=== PATIENT | female | born 1955 | race Caucasian/White ===

== ENCOUNTER 2019-06-04 16:48 | Inpatient (IN) ==
[2019-06-04] MEDS ORDERED: Naloxone 0.4 MG/ML INJ IVP PRN (18:16)
[2019-06-04 19:41] LABS: VBG HCO3 25 mEq/L (21-27); VBG PCO2 40 mmHg (41-51); VBG PH 7.41 pH Units (7.32-7.42); VBG PO2 45 mmHg (25-50)
[2019-06-04 19:44] LABS: Basophils % 0.3 %; Red Blood Count 4.21 M/mcL (3.82-4.97); Red Cell Distribution Width 14.1 % (11.5-14.5)
[2019-06-04 19:46] LABS: Eosinophils # 0.1 K/mcL (0.0-0.6); Eosinophils % 0.9 %; Hematocrit 40.4 % (35.3-44.9); Hemoglobin 14.1 g/dL (11.5-15.4); Immature Granulocytes % 1.1 % (0-4); Lymphocytes # 0.3 K/mcL (0.6-4.6); Lymphocytes % 3.8 %; Mean Corpuscular HGB Conc 34.9 g/dL (31.6-35.5); Mean Corpuscular Hemoglobin 33.5 pg (28.0-33.3); Mean Platelet Volume 10.2 fL (9.4-12.4); Monocytes # 0.6 K/mcL (0.0-1.3); Monocytes % 9.2 %; Neutrophils # 5.6 K/mcL (1.6-8.9); Segmented Neutrophils % 84.7 %; White Blood Count 6.6 K/mcL (4.3-11.1)
[2019-06-04 19:51] LABS: INR 1.7; Prothrombin Time 19.6 Seconds (9.4-12.1)
[2019-06-04 19:59] LABS: Alanine Aminotransferase 22 Units/L (7-52); Albumin 2.8 g/dL (3.5-5.7); Albumin/Globulin Ratio 1.1 (1.1-2.2); Alkaline Phosphatase 154 Units/L (34-104); Aspartate Amino Transferase 35 Units/L (13-39); BUN/Creatinine Ratio 18 (6-26); Blood Urea Nitrogen 13 mg/dL (8-23); Calcium 8.6 mg/dL (8.6-10.3); Carbon Dioxide 24 mEq/L (23-29); Chloride 99 mEq/L (98-107); Globulin 2.5 g/dL (2.4-3.5); Glucose 224 mg/dL (70-105); Magnesium 1.8 mg/dL (1.6-2.6); Osmolality,Calculated 279 (280-300); Potassium 3.8 mEq/L (3.5-5.1); Sodium 131 mEq/L (136-145); Total Protein 5.3 g/dL (6.4-8.9); eGFR For African Americans > 60 (> 60); eGFR For Non-African Americans > 60 (> 60)
[2019-06-04 20:01] LABS: Albumin 2.8 g/dL (3.5-5.7); Albumin/Globulin Ratio 1.1 (1.1-2.2); Bilirubin,Direct 2.7 mg/dL (0.0-0.2); Bilirubin,Indirect 3.3 mg/dL (0.0-1.2); Globulin 2.5 g/dL (2.4-3.5); Total Protein 5.3 g/dL (6.4-8.9)
[2019-06-04 20:07] LABS: Platelet Count 47 K/mcL (140-400); Platelet Estimate Decreased (Normal)
[2019-06-04 20:08] LABS: Reactive Lymphocytes Present (Not Present); Toxic Granulation Present (Not Present)
[2019-06-04] MEDS ORDERED: D5% in Water 1,000 ML IVC PRN (20:16)
[2019-06-04] MEDS ORDERED: *HR* Dextrose 50 % in Water (Syg) 50 ML SYRINGE IVP PRN (20:16)
[2019-06-04] MEDS ORDERED: Dextrose Gel 15 GM/37.5 ML TUBE PO PRN ×2 (20:16)
[2019-06-04] MEDS ORDERED: Isovue-370 500 ML BOTTLE IVP ONE (20:32)
[2019-06-04] MEDS: *HR* OxyCODONE Immed Rel 5 MG TABLET PO PRN (21:28)
[2019-06-04] MEDS: Lactulose Oral Soln 20 GM/30 ML UDC PO SCH (21:29)
--- NOTE | 2019-06-04 21:29 | Internal Med History&Physical ---
Date of Encounter: 06/04/19 Time of Encounter: 19:40 Internal Medicine - H&P: HPI Chief complaint: AMS; UTI; weakness Admitted From: Hospital to Hospital Transfer Plans for Post Hospital Care: Home History of present illness: Ms. Su is a 63 year old female who presents in transfer from [facility] for concerns of hepatic encephalopathy, UTI, generalized weakness. She presented there with a 24-hour history of altered mental status/confusion, weakness, somnolence, and increased falling. 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 She is not listed on transplant list as of yet. Patient's family requested patient be transferred to [facility] rather than [facility] and, as such, she was accepted here by the hospitalist along with consultation from Dr. Cooper. Upon my assessment of the patient, she is somnolent but easily arousable. She is confused, disoriented, and offers no history. Her daughter and son-in-law ar e present and provide the history. Patient is full code. However, she is currently enrolled in Hospice. Patient's daughter states that she is proceeding with liver transplantation workup. She was diagnosed about 3 years ago with cirrhosis in [place] when she was residing there. She has a TIPS in place and has done well with that shunt since its placement. She has a history of esophageal varices, but she has had no GI bleeding since her TIPS procedure. She is recovering from a broken fibula from a recent fall a few months ago. She does not drink alcohol. According to her daughter, she has not had any fevers, chills, or night sweats. She has had altered mental status and has been taken her lactulose religiously. She also been on her diuretics, but she has had minimal to no oral intake over the last 24 hours. Workup at [facility] included a CT of the head which was negative. Routine labs were performed which revealed patient to have a total bilirubin of 6, urinalysis consistent with UTI, and normal kidney function. Dr. Cooper requested a CT be performed here at [facility] when she arrived here if her kidney function was normal. Past Med Surg Social Fam HX - Past Medical History Source: obtained from family, other (limited [facility] records) Medical history: arthritis, asthma, cirrhosis (MUNOZ), diabetes, GI bleed, hyperlipidemia Psychiatric history: anxiety - Past Surgical History Surgical History: orthopedic, other Additional surgical history: TIPS. T&A - Social History Smoking Status: Never smoker Alcohol use: none Current living situation: Home, With Family Activity Level: Independent ambulation Recent Out of Country Travel Within the Last 8 Weeks: No - Family History Sister Hx Family GI Disorders: Yes (MUNOZ cirrhosis) - Additional Family History Additional family history: strong FH MUNOZ cirrhosis; one sister with ETOH related cirrhosis Internal Medicine - H&P: Meds Bumetanide [Bumex] 1 mg PO DAILY 06/04/19 [History] Ferrous Sulfate [Iron] 325 mg PO TID 06/04/19 [History] GlipiZIDE [Glucotrol Xl] 2.5 mg PO DAILY 06/04/19 [History] Lactulose 20 gm PO TID 06/04/19 [History] Omeprazole [PriLOSEC] 20 mg PO DAILY 06/04/19 [History] Ondansetron ODT [Zofran ODT] 4 mg PO DAILY PRN 06/04/19 [History] Oxybutynin [Ditropan] 2.5 mg PO BID 06/04/19 [History] Oxycodone HCl [Roxybond] 5 mg PO Q4H PRN 06/04/19 [History] Paroxetine [Paxil] 20 mg PO DAILY 06/04/19 [History] Pravastatin Sodium [Pravachol] 40 mg PO DAILY 06/04/19 [History] Propranolol [Inderal] 20 mg PO BID 06/04/19 [History] Rifaximin [Xifaxan] 550 mg PO DAILY 06/04/19 [History] Tramadol HCl [Ultram] 50 mg PO QID PRN 06/04/19 [History] Allergy/AdvReac Type Severity Reaction Status Date / Time metformin Allergy Rash Verified 09/06/18 13:51 Review of systems: per daughter; unable to obtain from patient - Constitutional Constitutional: anorexia, fatigue, falls, lethargy, malaise, no chills, no fever(s) - EENT Eyes: no change in vision Nose, mouth and throat: no nasal congestion - Cardiovascular Cardiovascular ROS IM: no chest pain, no dyspnea, no dyspnea on exertion - Respiratory Respiratory: no cough, no hemoptysis, no chest congestion - Gastrointestinal Gastrointestinal: abdominal pain (lower abdomen/suprapubic), no coffee ground emesis, no diarrhea, no hematemesis, no hematochezia, no melena, no vomiting - Genitourinary Genitourinary: difficulty voiding, dysuria, no flank pain, no hematuria - Musculoskeletal Musculoskeletal ROS IM: arthralgias - Integumentary Integumentary IM: rash (psoriasis), jaundice - Neurological Neurological ROS: behavioral changes, confusion, frequent falls, no convulsions, no focal weakness - Psychiatric Psychiatric: confusion, no anxiety, no depression - Endocrine Endocrine IM: no polydipsia, no polyphagia, no polyuria - Allergic/Immunologic Allergic/Immunologic: no GI upset with certain foods - Constitutional Vitals: Temp Pulse Resp BP Pulse Ox 99.4 F 67 18 161/76 96 06/04/19 19:45 06/04/19 19:45 06/04/19 19:45 06/04/19 19:45 06/04/19 19:45 General appearance: Present: A&O X 0, mild distress, morbidly obese. Absent: answers questions appropriately Exam: mildly jaunidced; confused, disoriented, appears intravascularly dry - Head Head exam: Present: atraumatic, normal inspection - Eye Eye exam: Present: EOMI, PERRL, scleral icterus Pupils: Present: normal accommodation - ENT ENT exam: Present: mucous membranes dry, normal oropharynx - Neck Neck exam general surgery: Present: full ROM, supple, trachea midline. Absent: lymphadenopathy, tenderness, nuchal rigidity, thyromegaly - Respiratory Respiratory exam: Present: CTAB. Absent: chest wall tenderness, rales, rhonchi, wheezes - Cardiovascular Cardiovascular exam: Present: RRR, +S1, +S2. Absent: diastolic murmur, systolic murmur - GI/Abdominal GI/Abdominal exam: Present: normal bowel sounds, tenderness (mild suprapubic pain), no peritoneal signs. Absent: guarding, hepatomegaly, mass, rebound, splenomegaly - Extremities Exam Extremities exam: Present: warm, radial pulses palpable and symmetrical. Absent: calf tenderness, pedal edema, tenderness - Back Exam Back exam: Absent: CVA tenderness (L), CVA tenderness (R) - Neurological Exam Neurological exam: Present: altered, no focal deficits Additional comments: somnolent; arousable; confused; moves all 4 extremities - Skin Skin exam: Present: dry, warm. Absent: rash Additional comments: +skin tenting Internal Med - H&P Results - Labs CBC & Chem 7: 06/04/19 19:12 06/04/19 19:12 Labs: Short CBC 06/04/19 Range/Units 19:12 WBC 6.6 (4.3-11.1) K/mcL Hgb 14.1 (11.5-15.4) g/dL Hct 40.4 (35.3-44.9) % Plt Count 47 L (140-400) K/mcL Neutrophils # 5.6 (1.6-8.9) K/mcL BMP 06/04/19 19:12 Sodium 131 L Potassium 3.8 Chloride 99 Carbon Dioxide 24 BUN 13 Creatinine 0.74 Glucose 224 H Calcium 8.6 Liver Function 06/04/19 06/04/19 Range/Units 19:12 19:12 Total Bilirubin 6.0 H 6.0 H (0.3-1.0) mg/dL Direct Bilirubin 2.7 H (0.0-0.2) mg/dL AST 35 36 (13-39) Units/L ALT 22 22 (7-52) Units/L Alkaline Phosphatase 154 H 156 H (34-104) Units/L Albumin 2.8 L 2.8 L (3.5-5.7) g/dL I reviewed labs from [facility] and include the following: Sodium 133 Potassium 4.3 Chloride 99 Carbon Dioxide 26 BUN 14 Glucose 249 Creatinine 0.82 AST 53 ALT 32 alkaline phosphatase 181 Bilirubin 6.1 Urinalysis consistent with UTI findings CT headnegative - ABG Interpretation ABG results: 06/04/19 19:38 VBG pH 7.41 VBG pCO2 40 L VBG pO2 45 VBG HCO3 25 - Assessment and Plan (1) UTI (urinary tract infection) Current Visit: Yes Status: Acute Assessment and plan: 1. Will order repeat U/A and culture here. 2. Continue Rocephin daily and follow cultures. 3. Monitor I/O and renal function. Qualifiers: Urinary tract infection type: acute cystitis Hematuria presence: with hematuria Qualified Code(s): N30.01 - Acute cystitis with hematuria (2) Hepatic encephalopathy Current Visit: Yes Status: Acute Assessment and plan: 1. Continue Lactulose and Rifaximin. 2. Treat UTI as this is likely culprit. 3. Monitor clinically. 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 Consult Dr. Cooper. 2. CT abdomen and pelvis per Dr. Cooper's request. 3. Recommended to family patient should continue to follow outpatient with [facility] if she remains to be a transplant candidate. (4) Dehydration, mild Current Visit: Yes Status: Acute Assessment and plan: 1. Hold diuretics for now. 2. IVF hydration. 3. Monitor I/O and clinical assessment of hydration status. (5) DVT prophylaxis Current Visit: Yes Status: Acute Assessment and plan: 1. EPCD's.
[2019-06-04] MEDS: 0.9 % Sodium Chloride 1,000 ML IVC SCH (21:42)
[2019-06-05 00:18] LABS: Bilirubin,Urine Small (Negative); Blood,Urine Trace (Negative); Clarity,Urine Clear (Clear); Color,Urine Dark Yellow (Yellow); Glucose,Urine (UA) 100 mg/dL (Normal); Ketones,Urine Negative (Negative); Leukocyte Esterase,Urine Moderate (Negative); Nitrite,Urine Negative (Negative); PH,Urine 6.5 pH Units (5.0-8.0); Protein,Urine Trace mg/dL (Neg-Trace); Specific Gravity,Urine > 1.030 (1.010-1.025)
[2019-06-05 00:20] LABS: Bacteria,Urine None Seen per hpf (None-Few); Hyaline Casts,Urine None Seen per lpf (None-Few); Squamous Epithelial Cell,Urine Many per lpf (None-Few); WBC,Urine TNTC per hpf (0-3)
[2019-06-05 01:38] LABS: Mean Corpuscular HGB Conc 34.8 g/dL (31.6-35.5)
[2019-06-05 01:40] LABS: Hematocrit 38.2 % (35.3-44.9); Hemoglobin 13.3 g/dL (11.5-15.4); Immature Platelets 3.3 % (1.1-6.1); Mean Corpuscular Hemoglobin 33.8 pg (28.0-33.3); Mean Corpuscular Volume 97.2 fL (83.0-100.0); Mean Platelet Volume 10.4 fL (9.4-12.4); Red Blood Count 3.93 M/mcL (3.82-4.97); White Blood Count 7.1 K/mcL (4.3-11.1)
[2019-06-05 02:07] LABS: Platelet Count 48 K/mcL (140-400)
[2019-06-05 02:08] LABS: Alanine Aminotransferase 23 Units/L (7-52); Albumin 2.6 g/dL (3.5-5.7); Albumin/Globulin Ratio 1.2 (1.1-2.2); Alkaline Phosphatase 138 Units/L (34-104); Aspartate Amino Transferase 57 Units/L (13-39); BUN/Creatinine Ratio 21 (6-26); Bilirubin,Direct 1.4 mg/dL (0.0-0.2); Bilirubin,Indirect 3.9 mg/dL (0.0-1.2); Bilirubin,Total 5.3 mg/dL (0.3-1.0); Blood Urea Nitrogen 13 mg/dL (8-23); Calcium 8.1 mg/dL (8.6-10.3); Carbon Dioxide 20 mEq/L (23-29); Chloride 101 mEq/L (98-107); Globulin 2.2 g/dL (2.4-3.5); Glucose 218 mg/dL (70-105); Magnesium 1.8 mg/dL (1.6-2.6); Osmolality,Calculated 277 (280-300); Potassium 4.2 mEq/L (3.5-5.1); Sodium 130 mEq/L (136-145); Total Protein 4.8 g/dL (6.4-8.9); eGFR For African Americans > 60 (> 60); eGFR For Non-African Americans > 60 (> 60)
[2019-06-05 02:09] LABS: Thyroid Stimulating Hormone 0.561 mcIU/mL (0.340-5.600)
[2019-06-05 03:04] LABS: Lymphocytes # 0.1 K/mcL (0.6-4.6); Monocytes # 0.6 K/mcL (0.0-1.3); Neutrophils # 6.3 K/mcL (1.6-8.9); Platelet Estimate Decreased (Normal); Toxic Granulation Present (Not Present)
[2019-06-05] MEDS: *HR* OxyCODONE Immed Rel 5 MG TABLET PO PRN (03:47)
[2019-06-05] MEDS ORDERED: cefTRIAXone 1,000 MG in Water for inj. (sterile) 10 ML IVP SCH (09:00)
[2019-06-05] MEDS: 0.9 % Sodium Chloride 1,000 ML IVC SCH (09:40)
[2019-06-05] MEDS: cefTRIAXone 2,000 MG in 0.9 % Sodium Chloride Mini Bag 100 ML IVPB SCH (09:50)
[2019-06-05] MEDS: Lactulose Oral Soln 20 GM/30 ML UDC PO SCH ×3 (09:54→20:00)
[2019-06-05] MEDS: Insulin LISPRO 300 UNITS/3 ML VIAL SQ SCH ×4 (10:01→20:32)
--- NOTE | 2019-06-05 10:40 | Gastroenterology Consult Note ---
<Vel Garcia Sofía - Last Filed: 06/05/19 10:37> Date of Encounter: 06/05/19 Time of Encounter: 09:10 - Assessment and plan (1) Liver cirrhosis secondary to MUNOZ Status: Chronic Assessment and plan: MELD-Na 24 and Child-Howell class C on admission. Patient s/p TIPs procedure. Check AFP. Titrate Lactulose for 2-4 BMs daily. Continue Rifaximin 550 mg BID. Lifestyle Changes: 1. Total abstinence from alcohol including social drinking. 2. No smoking. 3. Gradual loss of weight. 4. Drink at least 3 cups of coffee due to its antioxidant effects in the liver, it reduces risk of HCC and advance fibrosis. 5. If needed, use less than 2 g/day of Tylenol (in divided doses). 6. Vaccination for Hep A, B, Pneumococcus if not already received and yearly influenza vaccination by PCP. 7. Avoid NSAIDS as can cause kidney damage. 8. Avoid benzodiazepines and other sedatives such as anti-histamines, narcotics etc. as can cause encephalopathy or confusion. 9. Take a late carbohydrate meal supplement as it reduces glucose production from protein breakdown and thus improves nutrition. 10. In cirrhosis, statins are safe to use and also improve portal hypertension and decrease risk of HCC. 11. Screening: Hepatocellular cancer screening: US of liver and AFP every 6 months (2) Hepatic encephalopathy Status: Acute Assessment and plan: Secondary to Cirrhosis. Likely worsened by UTI. Titrate Lactulose for 2-4 BMs daily. Continue Rifaximin 550mg BID. Continue to treat UTI. - Time Spent With Patient Total time spent is greater than 50% in coordination of care (as documented) at patient's floor/unit and/or counseling patient: GI History of Present Illness - Data of Consult Patient: new to practice Consult date: 06/05/19 Requesting Physician: Emani Spangler - Consult Narrative Reason for consult: MUNOZ cirrhosis, encephalopathy History of present illness: Ms. Su is a 63 year old female with PMHx of arthritis, asthma, MUNOZ cirrhosis, DM, GI bleed, HLD who was transferred from [facility] for concerns of hepatic encephalopathy, UTI, generalized weakness. 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 She is somnolent but easily arousable. No fammily at bedside. History obtained from cheart review. She was diagnosed with cirrhosis 3 years ago in [place]. She is s/p TIPS procedures. No alcohol use. CT A/P showed pyelonephritis, cirrhosis with TIPS shunt in place, mild colonic stool burden. Procedures: No record of scopes. NSAIDs: None Anticoagulation: None Past Med Surg Social Fam HX - Past Medical History Medical history: arthritis, asthma, cirrhosis (MUNOZ), diabetes, GI bleed, hyperlipidemia Psychiatric history: anxiety - Past Surgical History Surgical History: orthopedic, other Additional surgical history: TIPS. T&A - Social History Smoking Status: Never smoker Alcohol use: none - Family History Sister Hx Family GI Disorders: Yes (MUNOZ cirrhosis) ROS unobtainable: due to mental status - Constitutional Vitals: Temp Pulse Resp BP Pulse Ox 98.5 F 54 18 159/75 95 06/05/19 07:07 06/05/19 07:07 06/05/19 07:07 06/05/19 07:07 06/05/19 07:07 General appearance: Present: cooperative, no acute distress Exam: oriented to name and year. Unable to keep eyes open during exam - Head Head exam: Present: atraumatic, normocephalic - Eye Eye exam: Present: scleral icterus - ENT ENT exam: Present: mucous membranes dry - Neck Neck exam general surgery: Present: normal inspection, trachea midline - Respiratory Respiratory exam: Present: CTAB. Absent: rales, rhonchi - Cardiovascular Cardiovascular exam: Present: RRR, +S1, +S2 - GI/Abdominal GI/Abdominal exam: Present: soft, no peritoneal signs. Absent: distended, firm, guarding, tenderness - Rectal Rectal exam: Present: deferred - Extremities Exam Extremities exam: Present: warm - Neurological Exam Neurological exam: Present: altered - Psychiatric Psychiatric exam: Present: normal affect, normal mood - Skin Skin exam: Present: dry, intact, warm Additional comments: mild jaundice Results - Labs CBC & Chem 7: 06/05/19 01:18 06/05/19 01:18 Labs: Last Result 06/05/19 01:18 Calcium 8.1 L Entire Visit 06/05/19 06/05/19 01:18 01:18 Hgb 13.3 Hct 38.2 Total Bilirubin 5.3 H AST 57 H ALT 23 - ABG ABG results: PT/INR, D-dimer PT 19.6 Seconds (9.4-12.1) H 06/04/19 19:12 - Impressions Impressions Abdomen/Pelvis CT 06/04/19 20:32 IMPRESSION: 1. Heterogeneous attenuation of the right renal parenchyma with infiltration of the perinephric fat. The findings are consistent with pyelonephritis. 2. Cirrhosis with TIPS shunt in place. Previous embolization of retroperitoneal varices. Small quantity of ascites. Third-spacing of fluid with mild anasarca and small left pleural effusion. 3. Mild diffuse colonic stool burden. 4. 3.1 cm fusiform infrarenal abdominal aortic aneurysm. Imaging follow-up recommendations below. Atherosclerotic calcification in the aorta and coronary circulation. RECOMMENDATIONS: For management of fusiform AAA: 3.0-3.4 cm AAA, recommend follow-up every 3 years. * For management of saccular abdominal aortic aneurysms of any size, recommend vascular consultation. Note: For AAA enlargement of >0.5 cm in 6 months or >1 cm in 1 year, recommend vascular consultation. References: J Am Bebeto Radiol 2013; 10(10):789-794; J Vasc Surg. 2018; 67:2-77 D/ / 06/04/2019 22:36:14 Patrick Phoenix MD / ching Interpreting Provider: Patrick Phoenix MD Consult Discharge Plan - Plan Referrals: NONE,PCP [Primary Care Provider] - Prescriptions: Furosemide [Lasix] 20 mg PO DAILY #30 tablet Cefdinir [Omnicef] 300 mg PO BID 5 Days #10 capsule Tramadol HCl [Ultram] 50 mg PO BID PRN 1 Days #2 tab PRN Reason: Pain Rifaximin [Xifaxan] 550 mg PO BID #60 tablet <Yariel Devi - Last Filed: 07/03/19 09:16> Date of Encounter: 06/05/19 - Time Spent With Patient Total time spent is greater than 50% in coordination of care (as documented) at patient's floor/unit and/or counseling patient: GI History of Present Illness - Data of Consult Requesting Physician: Belkys Pickering MD - Consult Narrative History of present illness: Ms. Su is a 63 year old female - Constitutional Vitals: Temp Pulse Resp BP Pulse Ox 97.8 F 54 17 155/54 96 06/09/19 15:18 06/09/19 15:18 06/09/19 15:18 06/09/19 15:18 06/09/19 15:18 Results - Labs CBC & Chem 7: 06/06/19 03:45 06/09/19 01:28 - ABG ABG results: PT/INR, D-dimer PT 19.6 Seconds (9.4-12.1) H 06/04/19 19:12 - Attending Attestation 63 year old female admitted with hepatic encephalopathy secondary to UTI and dehydration. Child C cirrhosis. Manage encephalopathy. I have personally performed a face to face evaluation on this patient. I have reviewed and agree with the care plan. History and Exam by me shows:
[2019-06-05 10:58] LABS: Estimated Average Glucose 108 mg/dl
--- NOTE | 2019-06-05 16:32 | Internal Med Progress Note ---
Hospitalist Progress Note - Encounter Date of Encounter: 06/05/19 Time of Encounter: 08:00 - Subjective Interval History: Patient was seen and examined at bedside. Alert and oriented to self, person knows president and place not time. Is unable to provide much information about how she came to the hospital. Complains of back pain. Falls asleep during questioning. I discussed her case with daughter at bedside. As per daughter about 3 months ago she fell and broke her fibula and was prescribed an orthopedic boot however she is noncompliant with the boot. Last follow-up with orthopedics was last week and as per daughter the fracture has not healed yet however her mother continues to refuse to wear the boot. As per daughter she has history of noncompliance to medications however she was started on a program to monitor her taking her medications and she reports that she has been compliant with all her medications except lasix. as per daughter she has never had SBP nor has she ever had ascites and there has been no need for paracenthesis. patient denies fever, chills, n/v. headache, pain, loss of function of her extremities. - Exam Vitals: Temp Pulse Resp BP Pulse Ox 98.4 F 55 90 168/73 90 06/05/19 15:44 06/05/19 15:44 06/05/19 12:07 06/05/19 15:44 06/05/19 15:44 Exam: General: Patient is drowsy, easily arousable, morbidly obese Head: atraumatic, normocephalic, Eye: normal appearance, PERRL, icteric ENT: mucous membranes moist, normal external ear exam Neck: normal inspection, trachea midline, no neck stiffness Chest: normal inspection, symmetric chest rise Respiratory: Distant breath sounds secondary to body habitus, Bilateral breath sounds are clear without wheezing, crackles, or rhonchi. Cardiovascular: Regular rate and rhythm. s1 and s2 No clicks, rubs, gallops, or murmors. Abdomen: Bowel sounds present normoactive x-4 quadrants. Obese, nontender to palpation in all quadrants, no rebound tenderness, could not appreciate any ascites. Has CVA tenderness bilaterally. musculoskeletal: Spontaneously moving all extremities. no edema, no calf tenderness Skin: warm, dry, intact. Neuro: Alert and oriented xSelf, person and place but not time. moving all extremities not cooperative with exam - Assessment and Plan (1) Hepatic encephalopathy Current Visit: Yes Status: Acute Assessment and Plan: Likely secondary to TIPS procedure and possible medication noncompliance which has exacerbated by pyelonephritis. Doubt SBP as she has no rebound tenderness, no mention of ascites on CT abdomen and pelvis. Continue Lactulose and Rifaximin. Neuro checks every 4 hours Aspiration, fall and seizure precautions Sure 3-4 bowel movements daily GI was consulted As per chart review CT head was negative at the other facility. susi repeat CT head as mental status is not improving (2) Pyelonephritis Current Visit: Yes Status: Acute Assessment and Plan: UA positive CT abdomen and pelvis- Heterogeneous attenuation of the right renal parenchyma with infiltration of the perinephric fat. The findings are consistent with pyelonephritis. Continue ceftriaxone Will follow urine cultures and bcx (3) Hyponatremia Current Visit: Yes Status: Acute Assessment and Plan: Appears to be hypervolemic hyponatremia follow sodium levels at 4pm hold SSRI TSH within normal limits cortisol level in the morning resume diuretics will consider adding aldactone Continue to monitor sodium levels closely. 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 3.0-3.4 cm AAA, recommend follow-up every 3 years. * For management of saccular abdominal aortic aneurysms of any size, recommend vascular consultation. Note: For AAA enlargement of >0.5 cm in 6 months or >1 cm in 1 year, recommend vascular consultation. (6) Thrombocytopenia Current Visit: Yes Status: Acute Assessment and Plan: secondary to cirrhosis monitor her for bleeding Avoid NSAIDS, Anticoagulations and ASA (7) DVT prophylaxis Current Visit: Yes Status: Acute Assessment and Plan: EPCD's. DVT Prophylaxis: prognosis is guarded - Time Spent with Patient Total time spent is greater than 50% in coordination of care (as documented) at patient's floor/unit and/or counseling patient: Greater than 35 minutes Plan of Care Discussed with: family Internal Medicine: Result - Labs CBC & Chem 7: 06/05/19 01:18 06/05/19 01:18 Labs: Short CBC 06/04/19 06/05/19 Range/Units 19:12 01:18 WBC 6.6 7.1 (4.3-11.1) K/mcL Hgb 14.1 13.3 (11.5-15.4) g/dL Hct 40.4 38.2 (35.3-44.9) % Plt Count 47 L 48 L (140-400) K/mcL Neutrophils # 5.6 6.3 (1.6-8.9) K/mcL BMP 06/04/19 06/05/19 19:12 01:18 Sodium 131 L 130 L Potassium 3.8 4.2 Chloride 99 101 Carbon Dioxide 24 20 L BUN 13 13 Creatinine 0.74 0.61 Glucose 224 H 218 H Calcium 8.6 8.1 L Liver Function 06/04/19 06/04/19 06/05/19 Range/Units 19:12 19:12 01:18 Total Bilirubin 6.0 H 6.0 H 5.3 H (0.3-1.0) mg/dL Direct Bilirubin 2.7 H 1.4 H (0.0-0.2) mg/dL AST 35 36 57 H (13-39) Units/L ALT 22 22 23 (7-52) Units/L Alkaline Phosphatase 154 H 156 H 138 H (34-104) Units/L Albumin 2.8 L 2.8 L 2.6 L (3.5-5.7) g/dL Urine 06/04/19 Range/Units 23:15 Urine Color Dark Yellow (Yellow) Urine Clarity Clear (Clear) Urine pH 6.5 (5.0-8.0) pH Units Ur Specific [place] > 1.030 H (1.010-1.025) Urine Protein Trace (Neg-Trace) mg/dL Urine Glucose (UA) 100 H (Normal) mg/dL - ABG Interpretation ABG results: PT/INR, D-dimer PT 19.6 Seconds (9.4-12.1) H 06/04/19 19:12 - Impressions Impressions Abdomen/Pelvis CT 06/04/19 20:32 IMPRESSION: 1. Heterogeneous attenuation of the right renal parenchyma with infiltration of the perinephric fat. The findings are consistent with pyelonephritis. 2. Cirrhosis with TIPS shunt in place. Previous embolization of retroperitoneal varices. Small quantity of ascites. Third-spacing of fluid with mild anasarca and small left pleural effusion. 3. Mild diffuse colonic stool burden. 4. 3.1 cm fusiform infrarenal abdominal aortic aneurysm. Imaging follow-up recommendations below. Atherosclerotic calcification in the aorta and coronary circulation. RECOMMENDATIONS: For management of fusiform AAA: 3.0-3.4 cm AAA, recommend follow-up every 3 years. * For management of saccular abdominal aortic aneurysms of any size, recommend vascular consultation. Note: For AAA enlargement of >0.5 cm in 6 months or >1 cm in 1 year, recommend vascular consultation. References: J Am Bebeto Radiol 2013; 10(10):789-794; J Vasc Surg. 2018; 67:2-77 D/ / 06/04/2019 22:36:14 Patrick Phoenix MD / ching Interpreting Provider: Patrick Phoenix MD Consult Discharge Plan - Plan Referrals: NONE,PCP [Primary Care Provider] - (5) AAA (abdominal aortic aneurysm) Qualifiers: Presence of rupture: without rupture Qualified Code(s): I71.4 - Abdominal aortic aneurysm, without rupture
[2019-06-05] MEDS: traMADol 50 MG TABLET PO PRN (17:04)
[2019-06-05] MEDS: Ondansetron 4 MG/2 ML VIAL IVP PRN (17:07)
[2019-06-06] MEDS ORDERED: traMADol 50 MG TABLET PO ONE (00:50)
[2019-06-06] MEDS: Ondansetron 4 MG/2 ML VIAL IVP PRN (01:12)
[2019-06-06 05:35] LABS: Hematocrit 43.3 % (35.3-44.9); Hemoglobin 14.8 g/dL (11.5-15.4); Immature Platelets 4.4 % (1.1-6.1); Mean Corpuscular HGB Conc 34.2 g/dL (31.6-35.5); Mean Corpuscular Hemoglobin 32.5 pg (28.0-33.3); Mean Corpuscular Volume 95.2 fL (83.0-100.0); Mean Platelet Volume 10.5 fL (9.4-12.4); Red Blood Count 4.55 M/mcL (3.82-4.97); Red Cell Distribution Width 14.2 % (11.5-14.5); White Blood Count 9.1 K/mcL (4.3-11.1)
[2019-06-06 05:41] LABS: BUN/Creatinine Ratio 27 (6-26); Blood Urea Nitrogen 13 mg/dL (8-23); Carbon Dioxide 21 mEq/L (23-29); Chloride 103 mEq/L (98-107); Glucose 159 mg/dL (70-105); Osmolality,Calculated 279 (280-300); Potassium 3.4 mEq/L (3.5-5.1); Sodium 133 mEq/L (136-145); eGFR For African Americans > 60 (> 60); eGFR For Non-African Americans > 60 (> 60)
[2019-06-06] MEDS: Potassium Chloride Elixir 20 MEQ/15 ML UDC PO SCH ×2 (08:16→20:56)
[2019-06-06] MEDS: Bumetanide 1 MG TABLET PO SCH (08:16)
[2019-06-06] MEDS: cefTRIAXone 2,000 MG in 0.9 % Sodium Chloride Mini Bag 100 ML IVPB SCH (08:17)
[2019-06-06] MEDS: Lactulose Oral Soln 20 GM/30 ML UDC PO SCH ×2 (08:26→20:57)
[2019-06-06] MEDS: Insulin LISPRO 300 UNITS/3 ML VIAL SQ SCH ×4 (08:26→21:01)
--- NOTE | 2019-06-06 10:19 | Internal Med Progress Note ---
Hospitalist Progress Note - Encounter Date of Encounter: 06/06/19 Time of Encounter: 08:00 - Subjective Interval History: Patient was seen and examined at bedside. Much more alert and awake. Denies any fever, chills, nausea, vomiting does have diarrhea ( lactulose). discussed that Pt/ot was consulted to work with her. awaiting boot by daughter for the fibula fx. Does complain of on and off back pain. She is tolerating by mouth diet. No overnight events. - Exam Vitals: Temp Pulse Resp BP Pulse Ox 97.7 F 55 16 169/76 92 06/06/19 07:37 06/06/19 07:37 06/06/19 07:37 06/06/19 07:37 06/06/19 07:37 Exam: General: Patient is drowsy, easily arousable, morbidly obese Head: atraumatic, normocephalic, Eye: normal appearance, PERRL, icteric ENT: mucous membranes moist, normal external ear exam Neck: normal inspection, trachea midline, no neck stiffness Chest: normal inspection, symmetric chest rise Respiratory: Distant breath sounds secondary to body habitus, Bilateral breath sounds are clear without wheezing, crackles, or rhonchi. Cardiovascular: Regular rate and rhythm. s1 and s2 No clicks, rubs, gallops, or murmors. Abdomen: Bowel sounds present normoactive x-4 quadrants. Obese, nontender to palpation in all quadrants, no rebound tenderness, could not appreciate any ascites. Has CVA tenderness bilaterally- improved musculoskeletal: Spontaneously moving all extremities. no edema, no calf tenderness Skin: warm, dry, intact. Neuro: Alert and oriented xSelf, 3, no focal deficit - Assessment and Plan (1) Hepatic encephalopathy Current Visit: Yes Status: Acute Assessment and Plan: Likely secondary to TIPS procedure and possible medication noncompliance which has exacerbated by pyelonephritis. - Improved, currently alert and oriented 3 Doubt SBP as she has no rebound tenderness, no mention of ascites on CT abdomen and pelvis. Continue Lactulose and Rifaximin. Neuro checks every 4 hours Aspiration, fall and seizure precautions Sure 3-4 bowel movements daily GI recommendations appreciated As per chart review CT head was negative at the other facility. Repeat CT head without any acute disease (2) Pyelonephritis Current Visit: Yes Status: Acute Assessment and Plan: UA positive CT abdomen and pelvis- Heterogeneous attenuation of the right renal parenchyma with infiltration of the perinephric fat. The findings are consistent with pyelonephritis. Continue ceftriaxone urine cultures negative BCX NGTD due to CT findings will treat for 5-7 days (3) Hyponatremia Current Visit: Yes Status: Acute Assessment and Plan: Appears to be hypervolemic hyponatremia follow sodium levels improved to 133 hold SSRI TSH within normal limits cortisol level WNL bumex resumed - will add aldactone ( discussed with GI) Continue to monitor sodium levels closely. 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 3.0-3.4 cm AAA, recommend follow-up every 3 years. * For management of saccular abdominal aortic aneurysms of any size, recommend vascular consultation. Note: For AAA enlargement of >0.5 cm in 6 months or >1 cm in 1 year, recommend vascular consultation. (6) Thrombocytopenia Current Visit: Yes Status: Acute Assessment and Plan: secondary to cirrhosis monitor her for bleeding Avoid NSAIDS, Anticoagulations and ASA (7) Declining functional status Current Visit: Yes Status: Acute Assessment and Plan: Pt/Ot ordered discussed with daughter has had multiple falls had fibula fx - daughter will bring surgical boot Last follow-up with orthopedics was last week and as per daughter the fracture has not healed yet however her mother continues to refuse to wear the boot. (8) DVT prophylaxis Current Visit: Yes Status: Acute Assessment and Plan: EPCD's. - Time Spent with Patient Total time spent is greater than 50% in coordination of care (as documented) at patient's floor/unit and/or counseling patient: 25 - 35 minutes Plan of Care Discussed with: patient Internal Medicine: Result - Labs CBC & Chem 7: 06/06/19 03:45 06/06/19 03:45 Labs: Short CBC 06/06/19 Range/Units 03:45 WBC 9.1 (4.3-11.1) K/mcL Hgb 14.8 D (11.5-15.4) g/dL Hct 43.3 (35.3-44.9) % Plt Count 43 L (140-400) K/mcL BMP 06/05/19 06/06/19 17:26 03:45 Sodium 132 L 133 L Potassium 3.4 L Chloride 103 Carbon Dioxide 21 L BUN 13 Creatinine 0.49 L Glucose 159 H Calcium 8.0 L - ABG Interpretation ABG results: PT/INR, D-dimer PT 19.6 Seconds (9.4-12.1) H 06/04/19 19:12 - Impressions Impressions Head CT 06/05/19 16:20 IMPRESSION: No acute intracranial abnormality. D/ / Radha Monterroso MD / Radha Monterroso MD Interpreting Provider: Radha Monterroso MD Chest X-Ray 06/06/19 04:00 IMPRESSION: No acute abnormality identified. Atelectasis versus scar within the left upper lobe. D/ / Matthew Raya MD / Matthew Raya MD Interpreting Provider: Matthew Raya MD Consult Discharge Plan - Plan Referrals: NONE,PCP [Primary Care Provider] - (5) AAA (abdominal aortic aneurysm) Qualifiers: Presence of rupture: without rupture Qualified Code(s): I71.4 - Abdominal aortic aneurysm, without rupture
[2019-06-06] MEDS: Spironolactone 25 MG TABLET PO SCH (12:29)
[2019-06-06] MEDS: traMADol 50 MG TABLET PO PRN (20:56)
[2019-06-07] MEDS ORDERED: *HR* OxyCODONE Immed Rel 5 MG TABLET PO ONE (05:37)
[2019-06-07 06:21] LABS: BUN/Creatinine Ratio 20 (6-26); Blood Urea Nitrogen 11 mg/dL (8-23); Calcium 7.6 mg/dL (8.6-10.3); Carbon Dioxide 24 mEq/L (23-29); Chloride 99 mEq/L (98-107); Glucose 208 mg/dL (70-105); Osmolality,Calculated 275 (280-300); Potassium 3.6 mEq/L (3.5-5.1); Sodium 130 mEq/L (136-145); eGFR For African Americans > 60 (> 60); eGFR For Non-African Americans > 60 (> 60)
[2019-06-07] MEDS: Lactulose Oral Soln 20 GM/30 ML UDC PO SCH ×2 (09:08→22:16)
[2019-06-07] MEDS: Bumetanide 1 MG TABLET PO SCH (09:09)
[2019-06-07] MEDS: Spironolactone 25 MG TABLET PO SCH (09:09)
[2019-06-07] MEDS: cefTRIAXone 2,000 MG in 0.9 % Sodium Chloride Mini Bag 100 ML IVPB SCH (09:10)
[2019-06-07] MEDS: Insulin LISPRO 300 UNITS/3 ML VIAL SQ SCH ×4 (09:12→22:14)
--- NOTE | 2019-06-07 10:06 | Internal Med Progress Note ---
Hospitalist Progress Note - Encounter Date of Encounter: 06/07/19 Time of Encounter: 08:00 - Subjective Interval History: Patient was seen and examined at bedside. Denies any nausea, vomiting or chest pain or palpitations. Pain is controlled. No overnight events. Tolerating by mouth diet. Discussed the importance of her being compliant with her lactulose. Currently awaiting to work with physical therapy. Case management on board for likely SNF placement. - Exam Vitals: Temp Pulse Resp BP Pulse Ox 98.1 F 61 14 134/67 91 06/07/19 08:00 06/07/19 08:00 06/07/19 08:00 06/07/19 08:00 06/07/19 08:00 Exam: General: Patient is drowsy, easily arousable, morbidly obese Head: atraumatic, normocephalic, Eye: normal appearance, PERRL, icteric ENT: mucous membranes moist, normal external ear exam Neck: normal inspection, trachea midline, no neck stiffness Chest: normal inspection, symmetric chest rise Respiratory: Distant breath sounds secondary to body habitus, Bilateral breath sounds are clear without wheezing, crackles, or rhonchi. Cardiovascular: Regular rate and rhythm. s1 and s2 No clicks, rubs, gallops, or murmors. Abdomen: Bowel sounds present normoactive x-4 quadrants. Obese, nontender to palpation in all quadrants, no rebound tenderness, could not appreciate any ascites. Has CVA tenderness bilaterally- improved musculoskeletal: Spontaneously moving all extremities. no edema, no calf tenderness Skin: warm, dry, intact. Neuro: Alert and oriented xSelf, 3, no focal deficit - Assessment and Plan (1) Hepatic encephalopathy Current Visit: Yes Status: Acute Assessment and Plan: Likely secondary to TIPS procedure and possible medication noncompliance which has exacerbated by pyelonephritis. -resolved. currently alert and oriented 3 Doubt SBP as she has no rebound tenderness, no mention of ascites on CT abdomen and pelvis. Continue Lactulose and Rifaximin. Neuro checks every 4 hours Aspiration, fall and seizure precautions Sure 3-4 bowel movements daily GI recommendations appreciated As per chart review CT head was negative at the other facility. Repeat CT head without any acute disease (2) Pyelonephritis Current Visit: Yes Status: Acute Assessment and Plan: UA positive CT abdomen and pelvis- Heterogeneous attenuation of the right renal parenchyma with infiltration of the perinephric fat. The findings are consistent with pyelonephritis. Continue ceftriaxone urine cultures negative BCX NGTD due to CT findings will treat for 5-7 days (3) Hyponatremia Current Visit: Yes Status: Acute Assessment and Plan: Appears to be hypervolemic hyponatremia Continue to monitor sodium levels is 130 on 06/07 hold SSRI TSH within normal limits cortisol level WNL bumex resumed - will add aldactone ( discussed with GI) Continue to monitor sodium levels closely. 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 3.0-3.4 cm AAA, recommend follow-up every 3 years. * For management of saccular abdominal aortic aneurysms of any size, recommend vascular consultation. Note: For AAA enlargement of >0.5 cm in 6 months or >1 cm in 1 year, recommend vascular consultation. (6) Thrombocytopenia Current Visit: Yes Status: Acute Assessment and Plan: secondary to cirrhosis monitor her for bleeding Avoid NSAIDS, Anticoagulations and ASA (7) Declining functional status Current Visit: Yes Status: Acute Assessment and Plan: Pt/Ot ordered discussed with daughter has had multiple falls had fibula fx - daughter will bring surgical boot Last follow-up with orthopedics was last week and as per daughter the fracture has not healed yet however her mother continues to refuse to wear the boot. (8) DVT prophylaxis Current Visit: Yes Status: Acute Assessment and Plan: EPCD's. - Time Spent with Patient Total time spent is greater than 50% in coordination of care (as documented) at patient's floor/unit and/or counseling patient: 25 - 35 minutes Plan of Care Discussed with: patient Internal Medicine: Result - Labs CBC & Chem 7: 06/06/19 03:45 06/07/19 04:29 Labs: BMP 06/07/19 04:29 Sodium 130 L Potassium 3.6 Chloride 99 Carbon Dioxide 24 BUN 11 Creatinine 0.55 L Glucose 208 H Calcium 7.6 L - ABG Interpretation ABG results: PT/INR, D-dimer PT 19.6 Seconds (9.4-12.1) H 08/11/19 19:12 Consult Discharge Plan - Plan Referrals: NONE,PCP [Primary Care Provider] - (5) AAA (abdominal aortic aneurysm) Qualifiers: Presence of rupture: without rupture Qualified Code(s): I71.4 - Abdominal aortic aneurysm, without rupture
[2019-06-07] MEDS: traMADol 50 MG TABLET PO PRN (22:14)
[2019-06-08 03:47] LABS: BUN/Creatinine Ratio 19 (6-26); Blood Urea Nitrogen 10 mg/dL (8-23); Calcium 7.7 mg/dL (8.6-10.3); Carbon Dioxide 25 mEq/L (23-29); Chloride 99 mEq/L (98-107); Glucose 221 mg/dL (70-105); Osmolality,Calculated 276 (280-300); Potassium 3.4 mEq/L (3.5-5.1); Sodium 130 mEq/L (136-145); eGFR For African Americans > 60 (> 60); eGFR For Non-African Americans > 60 (> 60)
[2019-06-08] MEDS ORDERED: Furosemide 20 MG TABLET PO PRN (07:14)
[2019-06-08] MEDS: Lactulose Oral Soln 20 GM/30 ML UDC PO SCH ×3 (09:11→22:05)
[2019-06-08] MEDS: cefTRIAXone 2,000 MG in 0.9 % Sodium Chloride Mini Bag 100 ML IVPB SCH (09:11)
[2019-06-08] MEDS: Spironolactone 25 MG TABLET PO SCH (09:12)
[2019-06-08] MEDS: Insulin LISPRO 300 UNITS/3 ML VIAL SQ SCH ×4 (09:15→22:06)
--- NOTE | 2019-06-08 10:08 | Internal Med Progress Note ---
Hospitalist Progress Note - Encounter Date of Encounter: 06/08/19 Time of Encounter: 09:56 - Subjective Interval History: Patient was seen and examined at bedside. As per nursing staff she was refusing to her lactulose however took it yesterday. Denies nausea, vomiting. Tolerating by mouth diet. Denies any shortness of breath or palpitations. Back pain has resolved. No other complaints. - Exam Vitals: Temp Pulse Resp BP Pulse Ox 97.9 F 60 18 140/73 98 06/08/19 06:56 06/08/19 06:56 06/08/19 06:56 06/08/19 06:56 06/08/19 09:15 Exam: General: Patient is drowsy, easily arousable, morbidly obese Head: atraumatic, normocephalic, Eye: normal appearance, PERRL, icteric ENT: mucous membranes moist, normal external ear exam Neck: normal inspection, trachea midline, no neck stiffness Chest: normal inspection, symmetric chest rise Respiratory: Distant breath sounds secondary to body habitus, Bilateral breath sounds are clear without wheezing, crackles, or rhonchi. Cardiovascular: Regular rate and rhythm. s1 and s2 No clicks, rubs, gallops, or murmors. Abdomen: Bowel sounds present normoactive x-4 quadrants. Obese, nontender to palpation in all quadrants, no rebound tenderness, could not appreciate any ascites. no CVA tenderness musculoskeletal: Spontaneously moving all extremities. no edema, no calf tenderness Skin: warm, dry, intact. Neuro: Alert and oriented xSelf, 3, no focal deficit - Assessment and Plan (1) Hepatic encephalopathy Current Visit: Yes Status: Acute Assessment and Plan: Likely secondary to TIPS procedure and possible medication noncompliance which has exacerbated by pyelonephritis. -resolved. currently alert and oriented 3 Doubt SBP as she has no rebound tenderness, no mention of ascites on CT abdomen and pelvis. Continue Lactulose and Rifaximin.- has refused a few doses and her ammonia level has increased to 91 from 77 Neuro checks every 4 hours Aspiration, fall and seizure precautions Sure 3-4 bowel movements daily GI recommendations appreciated As per chart review CT head was negative at the other facility. Repeat CT head without any acute disease (2) Pyelonephritis Current Visit: Yes Status: Acute Assessment and Plan: UA positive CT abdomen and pelvis- Heterogeneous attenuation of the right renal parenchyma with infiltration of the perinephric fat. The findings are consistent with pyelonephritis. Continue ceftriaxone urine cultures negative BCX NGTD due to CT findings will treat for 7 days (3) Hyponatremia Current Visit: Yes Status: Acute Assessment and Plan: Appeared to be hypervolemic hyponatremia hwoever she is euvolemic now Continue to monitor sodium levels is 130 on 06/07 hold SSRI TSH within normal limits cortisol level WNL bumex was discontinued and she was started on low dose lasix as per my discussion with GI and continue with aldactone. 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 3.0-3.4 cm AAA, recommend follow-up every 3 years. * For management of saccular abdominal aortic aneurysms of any size, recommend vascular consultation. Note: For AAA enlargement of >0.5 cm in 6 months or >1 cm in 1 year, recommend vascular consultation. (6) Thrombocytopenia Current Visit: Yes Status: Acute Assessment and Plan: secondary to cirrhosis monitor her for bleeding Avoid NSAIDS, Anticoagulations and ASA (7) Declining functional status Current Visit: Yes Status: Acute Assessment and Plan: Pt/Ot ordered discussed with daughter has had multiple falls had fibula fx - daughter will bring surgical boot Last follow-up with orthopedics was last week and as per daughter the fracture has not healed yet however her mother continues to refuse to wear the boot. (8) DVT prophylaxis Current Visit: Yes Status: Acute Assessment and Plan: EPCD's. - Time Spent with Patient Total time spent is greater than 50% in coordination of care (as documented) at patient's floor/unit and/or counseling patient: Internal Medicine: Result - Labs CBC & Chem 7: 06/06/19 03:45 06/08/19 03:17 Labs: BMP 06/08/19 03:17 Sodium 130 L Potassium 3.4 L Chloride 99 Carbon Dioxide 25 BUN 10 Creatinine 0.52 L Glucose 221 H Calcium 7.7 L - ABG Interpretation ABG results: PT/INR, D-dimer PT 19.6 Seconds (9.4-12.1) H 06/04/19 19:12 Consult Discharge Plan - Plan Referrals: NONE,PCP [Primary Care Provider] - (5) AAA (abdominal aortic aneurysm) Qualifiers: Presence of rupture: without rupture Qualified Code(s): I71.4 - Abdominal aortic aneurysm, without rupture
[2019-06-08] MEDS: traMADol 50 MG TABLET PO PRN ×2 (10:59→22:03)
[2019-06-08] MEDS: Ondansetron 4 MG/2 ML VIAL IVP PRN ×2 (16:32→16:34)
[2019-06-09 02:00] LABS: BUN/Creatinine Ratio 17 (6-26); Blood Urea Nitrogen 8 mg/dL (8-23); Calcium 7.8 mg/dL (8.6-10.3); Carbon Dioxide 26 mEq/L (23-29); Chloride 103 mEq/L (98-107); Glucose 179 mg/dL (70-105); Osmolality,Calculated 281 (280-300); Potassium 3.4 mEq/L (3.5-5.1); Sodium 134 mEq/L (136-145); eGFR For African Americans > 60 (> 60); eGFR For Non-African Americans > 60 (> 60)
[2019-06-09] MEDS: Ondansetron 4 MG/2 ML VIAL IVP PRN ×2 (03:01→11:55)
[2019-06-09] MEDS: cefTRIAXone 2,000 MG in 0.9 % Sodium Chloride Mini Bag 100 ML IVPB SCH (08:04)
[2019-06-09] MEDS: Spironolactone 25 MG TABLET PO SCH (08:04)
[2019-06-09] MEDS: Insulin LISPRO 300 UNITS/3 ML VIAL SQ SCH ×2 (08:06→11:59)
[2019-06-09] MEDS: Lactulose Oral Soln 20 GM/30 ML UDC PO SCH (08:06)
[2019-06-09] MEDS: traMADol 50 MG TABLET PO PRN (09:49)
--- NOTE | 2019-06-09 10:41 | Discharge Summary ---
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 Su is a 63 year old female who presents in transfer from [facility] for concerns of hepatic encephalopathy, UTI, generalized weakness. She presented there with a 24-hour history of altered mental status/confusion, weakness, somnolence, and increased falling. 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 She is not listed on transplant list as of yet. Patient's family requested patient be transferred to [facility] rather than [facility] and, as such, she was accepted here by the hospitalist along with consultation from Dr. Cooper. Upon my assessment of the patient, she is somnolent but easily arousable. She is confused, disoriented, and offers no history. Her daughter and son-in-law are present and provide the history. Patient is full code. However, she is currently enrolled in Hospice. Patient's daughter states that she is proceeding with liver transplantation workup. She was diagnosed about 3 years ago with cirrhosis in [place] when she was residing there. She has a TIPS in place and has done well with that shunt since its placement. She has a history of esophageal varices, but she has had no GI bleeding since her TIPS procedure. She is recovering from a broken fibula from a recent fall a few months ago. She does not drink alcohol. According to her daughter, she has not had any fevers, chills, or night sweats. She has had altered mental status and has been taken her lactulose religiously. She also been on her diuretics, but she has had minimal to no oral intake over the last 24 hours. Workup at [facility] included a CT of the head which was negative. Routine labs were performed which revealed patient to have a total bilirubin of 6, urinalysis consistent with UTI, and normal kidney function. Dr. Cooper requested a CT be performed here at [facility] when she arrived here if her kidney function was normal. " Patient was admitted with above presentation and had above course at [facility]. CT abdomen and pelvis was positive for pyelonephritis. She was started on IV antibiotics with improvement of her back pain, she remained afebrile, no leukocytosis. She was transitioned to by mouth antibiotics and is to complete a 10 day course. ucx NGTD, blood cx NGTD. She was started on lactulose and rifaximin 18 with improvement of her mental status. CT head was negative for any acute abnormalities. GI was consulted and Bumex was discontinued as she was becoming hyponatremic. She was changed to Lasix 20 mg daily along with Aldactone as per GI recommendations. Her SSRI was discontinued secondary to hyponatremia. TSH was within normal limit cortisol was within normal limit. Her ammonia trended down to 89 on 06/09. She is to have a repeat BMP and ammonia in 3 days. She was found to have incidental AAA, radiologist recommendations as below for follow up. She was counseled extensively on importance of medication compliance and she understands. discussed with daughter has had multiple falls had fibula fx - to wear surgical boot. Last follow-up with orthopedics was last week and as per daughter the fracture has not healed yet however her mother continues to refuse to wear the boot. physical therapy and rehabilitation were consulted and recommended SNF placement, this was discussed with patient and family were also in agreement. Social work and case management were consulted. She was cleared by GI for discharge. Her sodium level improved to 134 and discharge date again to have BMP followed up in 3 days. discussed above plan with daughter and she is in agreement. Ct A/P 1. Heterogeneous attenuation of the right renal parenchyma with infiltration of the perinephric fat. The findings are consistent with pyelonephritis. 2. Cirrhosis with TIPS shunt in place. Previous embolization of retroperitoneal varices. Small quantity of ascites. Third-spacing of fluid with mild anasarca and small left pleural effusion. 3. Mild diffuse colonic stool burden. 4. 3.1 cm fusiform infrarenal abdominal aortic aneurysm. Imaging follow-up recommendations below. Atherosclerotic calcification in the aorta and coronary circulation. 3.0-3.4 cm AAA, recommend follow-up every 3 years. * For management of saccular abdominal aortic aneurysms of any size, recommend vascular consultation. Note: For AAA enlargement of >0.5 cm in 6 months or >1 cm in 1 year, recommend vascular consultation. CT head: IMPRESSION: No acute intracranial abnormality. CXR: IMPRESSION: No acute abnormality identified. Atelectasis versus scar within the left upper lobe. Discharge discussed with: patient, family, nurse, social work, case management, business travel consultant - Time Spent with Patient Total time spent providing and/or coordinating discharge services: Time spent: Greater than 30 minutes - Discharge Medications Prescriptions: New Spironolactone [Aldactone] 25 mg PO DAILY #30 tablet Furosemide [Lasix] 20 mg PO DAILY #30 tablet Cefdinir [Omnicef] 300 mg PO BID 5 Days #10 capsule Tramadol HCl [Ultram] 50 mg PO BID PRN 1 Days #2 tab PRN Reason: Pain Continued Omeprazole [PriLOSEC] 20 mg PO DAILY Propranolol [Inderal] 20 mg PO BID Oxybutynin [Ditropan] 2.5 mg PO BID Pravastatin Sodium [Pravachol] 40 mg PO DAILY Rifaximin [Xifaxan] 550 mg PO DAILY Albuterol Sulfate [Ventolin Hfa] 2 puff IH Q4H PRN PRN Reason: Shortness Of Breath Buspirone HCl [Buspar] 5 mg PO BID GlipiZIDE [Glucotrol] 2.5 mg PO DAILY Lactulose 20 gm PO TID Discontinued Oxycodone HCl [Roxybond] 5 mg PO Q6H PRN PRN Reason: Pain Bumetanide [Bumex] 1 mg PO DAILY Tramadol HCl [Ultram] 50 mg PO Q6H PRN PRN Reason: Pain Paroxetine [Paxil] 20 mg PO DAILY Ondansetron HCl 4 mg PO Q4H PRN PRN Reason: NAUSEA/VOMITING Home Medications: Omeprazole [PriLOSEC] 20 mg PO DAILY 06/04/19 [History] Oxybutynin [Ditropan] 2.5 mg PO BID 06/04/19 [History] Pravastatin Sodium [Pravachol] 40 mg PO DAILY 06/04/19 [History] Propranolol [Inderal] 20 mg PO BID 06/04/19 [History] Rifaximin [Xifaxan] 550 mg PO DAILY 06/04/19 [History] Albuterol Sulfate [Ventolin Hfa] 2 puff IH Q4H PRN 06/05/19 [History] Buspirone HCl [Buspar] 5 mg PO BID 06/05/19 [History] GlipiZIDE [Glucotrol] 2.5 mg PO DAILY 06/05/19 [History] Lactulose 20 gm PO TID 06/05/19 [History] Cefdinir [Omnicef] 300 mg PO BID 5 Days #10 capsule 06/09/19 [Rx] Furosemide [Lasix] 20 mg PO DAILY #30 tablet 06/09/19 [Rx] Spironolactone [Aldactone] 25 mg PO DAILY #30 tablet 06/09/19 [Rx] Tramadol HCl [Ultram] 50 mg PO BID PRN 1 Days #2 tab 06/09/19 [Rx] Allergies/Adverse Reactions: Allergy/AdvReac Type Severity Reaction Status Date / Time metformin Allergy Rash Verified 09/06/18 13:51 Date of admission: 06/06/19 12:01 Primary care physician: PCP NONE Consults: 06/04/19 20:16 Consult to Gastroenterology [CONS] Routine Consulting Provider: Gastroenterology Brenda Reason for Consult: MUNOZ cirrhosis; hepatic encephalpathy; follows with [facility] transplant Call Completed: No Consult to Cash Posting Clerk [CONS] Routine Reason for SW Consult: D/C planning 06/05/19 16:20 Consult to Physical Therapy [CONS] Routine Comment: Evaluate, develop and implement POC Reason for Consult: dispostion Does patient have active BEDREST order?: No Is patient medically & hemodynamically stable?: Yes Patient assessed for mobility or mobilized this visit?: Yes OT [Consult to Occupational Therapy] [CONS] Routine Comment: Evaluate, develop and implement POC Reason for Consult: disposition Does patient have active BEDREST order?: No Is patient medically & hemodynamically stable?: Yes Patient assessed for mobility or mobilized this visit?: Yes - Constitutional Vitals: Temp Pulse Resp BP Pulse Ox 97.9 F 59 17 164/68 93 06/09/19 07:17 06/09/19 07:17 06/09/19 07:17 06/09/19 07:17 06/09/19 07:17 Exam: General: Patient is drowsy, easily arousable, morbidly obese Head: atraumatic, normocephalic, Eye: normal appearance, PERRL, icteric ENT: mucous membranes moist, normal external ear exam Neck: normal inspection, trachea midline, no neck stiffness Chest: normal inspection, symmetric chest rise Respiratory: Distant breath sounds secondary to body habitus, Bilateral breath sounds are clear without wheezing, crackles, or rhonchi. Cardiovascular: Regular rate and rhythm. s1 and s2 No clicks, rubs, gallops, or murmors. Abdomen: Bowel sounds present normoactive x-4 quadrants. Obese, nontender to palpation in all quadrants, no rebound tenderness, could not appreciate any ascites. no CVA tenderness musculoskeletal: Spontaneously moving all extremities. no edema, no calf tender ness Skin: warm, dry, intact. Neuro: Alert and oriented xSelf, 3, no focal deficit affect: normal. no SI or HI - Patient Status Disposition: Transfer SNF Condition: Fair Functional capacity at discharge: uses cane/walker Overall status at discharge: patient is progressing back to baseline - Discharge Instructions Follow Up With: NONE,PCP [Primary Care Provider] - - Diet and Activity Activity: as per physical therapy, increase activity as tolerated Diet: advance to your usual diet
[2019-06-09] MEDS ORDERED: Cefdinir 300 MG CAPSULE PO SCH (10:45)
--- NOTE | 2019-06-09 10:57 | Physician Discharge Referral ---
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 Status: Chronic (5) AAA (abdominal aortic aneurysm) Status: Acute (6) Thrombocytopenia Status: Acute (7) Declining functional status Status: Acute (8) DVT prophylaxis Status: Acute - Transfer Medications Prescriptions: Furosemide [Lasix] 20 mg PO DAILY #30 tablet Cefdinir [Omnicef] 300 mg PO BID 5 Days #10 capsule Tramadol HCl [Ultram] 50 mg PO BID PRN 1 Days #2 tab PRN Reason: Pain Home Medications: Omeprazole [PriLOSEC] 20 mg PO DAILY 06/04/19 [History] Oxybutynin [Ditropan] 2.5 mg PO BID 06/04/19 [History] Pravastatin Sodium [Pravachol] 40 mg PO DAILY 06/04/19 [History] Propranolol [Inderal] 20 mg PO BID 06/04/19 [History] Rifaximin [Xifaxan] 550 mg PO DAILY 06/04/19 [History] Albuterol Sulfate [Ventolin Hfa] 2 puff IH Q4H PRN 06/05/19 [History] Buspirone HCl [Buspar] 5 mg PO BID 06/05/19 [History] GlipiZIDE [Glucotrol] 2.5 mg PO DAILY 06/05/19 [History] Lactulose 20 gm PO TID 06/05/19 [History] Cefdinir [Omnicef] 300 mg PO BID 5 Days #10 capsule 06/09/19 [Rx] Furosemide [Lasix] 20 mg PO DAILY #30 tablet 06/09/19 [Rx] Spironolactone [Aldactone] 25 mg PO DAILY #30 tablet 06/09/19 [Rx] Tramadol HCl [Ultram] 50 mg PO BID PRN 1 Days #2 tab 06/09/19 [Rx] Allergies/Adverse Reactions: Allergy/AdvReac Type Severity Reaction Status Date / Time metformin Allergy Rash Verified 09/06/18 13:51 - Respiratory Orders Smoking Cessation: Smoking cessation has been advised. For more information, call the [place] Tobacco Quit Line at 5-383-CSZZ-NOW. - Lab Orders Lab Orders: Other (include drug levels w/frequency) (bmp in 3 days ammonia in 3 days) - Advance Directives Code Status: Full Code - Rehabiliation Orders Rehab Potential: Fair Rehab Orders: ROM Exercises, Evaluation for Physical Therapy, Evaluation for Occupational Therapy, Evaluation for Speech Therapy - Diet Orders Cardiac CERTIFICATION: I certify that the transfer of the above named patient to an Extended Care Facility is necessary for the continuing treatment of the diagnosis listed. The above information is true and accurate reflection of patient's current condition. Confidential - Redisclosure prohibited without a patient's written consent.
[2019-06-09 15:25] VITALS: BP 155/54
== END 2019-06-09 18:14 | DRG 442 ==
LOC: 2NENU → SUATTDRO 06-06 12:01
PROVIDERS: ADMIT Internal Medicine; ATTEND Internal Medicine